=== PATIENT | male | born 1990 | race African-American/Black ===

== ENCOUNTER → 2023-06-24 | Outpatient (CLI) | payer OTHER | LOC: M PLAIMG 15:08 | PROVIDERS: ATTEND Physician Assistant | DX: M54.2 Cervicalgia (principal) ==

== ENCOUNTER → 2023-12-08 | Outpatient (REF) | LOC: M PLAIMG 08:45 | PROVIDERS: ATTEND Internal Medicine | DX: R52 Pain, unspecified (principal) ==